=== PATIENT | male | born 1940 | race Caucasian/White ===

== ENCOUNTER 2016-08-05 09:55 | Emergency (ER) | payer OTHER ==
[2016-08-05 10:12] VITALS: BP 109/61; PULSE 101; TEMP 97.9; BMI 18.7
--- NOTE | 2016-08-05 11:12 | PDOC ---
History of Present Illness - General Chief Complaint: Respiratory Stated Complaint: NASAL DISCHARGE Time Seen by Provider: 08/05/16 10:39 - History of Present Illness Initial Comments: 08/05/16 11:13 CHIEF COMPLAINT: "I need an operation." HISTORY OF PRESENT ILLNESS: 75 yo M with no PMH [facility] c/ o of "I need an operation of my nose. I've had a lot of water and mucus coming out of my nose for many many years, from an ice pick injury years ago." Patient denies any pain or any complaints at this time, repeatedly stating "I just need to make an appointment for this operation." No recent travel or sick contacts. PAST MEDICAL HISTORY: Denies past medical history REVIEW OF SYSTEMS General/Constitutional: Denies fever or chills. Denies weakness, weight change. HEENT: "Runny nose for many years.." Denies change in vision. Denies ear pain or discharge. Denies sore throat. Cardiovascular: Denies chest pain or shortness of breath. Respiratory: Denies cough, wheezing, or hemoptysis. Gastrointestinal: Denies nausea, vomiting, diarrhea or constipation. Denies rectal bleeding PHYSICAL EXAM General Appearance: Well-appearing, appropriately dressed. No apparent distress. HEENT: Rhinorrhea. EOMI, PERRLA, normal ENT inspection, normal voice, TMs normal , pharynx normal. No conjunctival pallor. No photophobia, scleral icterus. Respiratory/Chest: Lungs CTAB. Cardiovascular: RRR. S1, S2. Integumentary: Appropriate color, dry, warm. 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 Fully oriented, alert. Appropriate mood/affect. Motor strength 5/5. No appreciable EOM palsy, facial droop or sensory deficit. 08/05/16 11:18 08/05/16 11:18 Past History - Past Medical History Allergies/Adverse Reactions: Allergies Allergy/AdvReac Type Severity Reaction Status Date / Time No Known Allergies Allergy Verified 08/05/16 10:07 Home Medications: Ambulatory Orders NK [No Known Home Medication] 08/05/16 Other medical history: DENIES. - Psycho/Social/Smoking Cessation Hx Suicidal Ideation: No Smoking History: Current every day smoker Have you smoked in the past 12 months: Yes Number of Cigarettes Smoked Daily: 20 Information on smoking cessation initiated: No *Physical Exam - Vital Signs Last Vital Signs Temp Pulse Resp BP Pulse Ox 97.9 F 101 H 19 109/61 97 08/05/16 10:07 08/05/16 10:07 08/05/16 10:07 08/05/16 10:07 08/05/16 10:07 Medical Decision Making - Medical Decision Making 08/05/16 11:18 75 yo M with no PMH [facility] appointment for " operation on my nose." Patient has no complaints other than requesting appointment for operation, will discharge with referral to ENT. *DC/Admit/Observation/Transfer Diagnosis at time of Disposition: Referral needed - Discharge Dispostion Disposition: HOME Condition at time of disposition: Stable Admit: No - Referrals Referrals: Camacho Schultz MD [Staff Physician] -
== END 2016-08-05 11:23 | disposition home or self-care (01) ==
LOC: JERFT 09:55
DX: Z01.89 Encounter for other specified special examinations (principal); F17.210 Nicotine dependence, cigarettes, uncomplicated
CPT/HCPCS: 99281-25